=== PATIENT | female | born 1990 | race Caucasian/White ===

== ENCOUNTER 2017-10-24 00:15 | Emergency (ER) | payer MEDICAID ==
[~2017-10-24] VITALS: Ht 162.6 cm; Wt 73.0 kg
[2017-10-24 00:19] VITALS: BP 125/68
--- NOTE | 2017-10-24 00:40 | NUR ---
TO ER BED 4
--- NOTE | 2017-10-24 00:40 | NUR ---
27/F CAME IN W C/O 03/28 RLQ PAIN, CONSTANT, PROGRESSIVELY WORSENING X 2 DAYS. ABD SOFT, ROUND, +TENDERNESS TO RLQ. PT REPORTS N/VX 2 TODAY, REPORTS HEMATURIA/DYSURIA, PAINFUL INTERCOURSE, DENIES FEVER/CHILLS, DENIES SOB/CP/COUGH. PMH: PID 2017, VERTIGO, DENIES RX, TOOK TYLENOL AT 1300 YESTERDAY WITHOUT RELIEF OF SX
[2017-10-24] MEDS ORDERED: KETOROLAC 60 MG/2 ML VIAL IM ONE (01:00)
[2017-10-24 01:03] LABS: APPEARANCE,URINE CLEAR (CLEAR); BILIRUBIN,URINE NEGATIVE (NEGATIVE); BLOOD, URINE NEGATIVE (NEGATIVE); COLOR,URINE YELLOW (YELLOW); LEUKOCYTE ESTERASE ,URINE NEGATIVE (NEGATIVE); NITRITE, URINE NEGATIVE (NEGATIVE); UGLUCOSE NEGATIVE (NEGATIVE)
[2017-10-24] MEDS ORDERED: AZITHROMYCIN 250 MG TAB PO ONE (02:15)
[2017-10-24] MEDS ORDERED: cefTRIAXone 250 MG in LIDOCAINE MPF 1% - **ER/OR** 0.9 ML IM ONE (02:15)
[2017-10-24] MEDS ORDERED: MORPHINE SULFATE 2 MG/ML SYR IM ONE (02:35)
--- NOTE | 2017-10-24 03:55 | NUR ---
Patient discharged with v/s stable. Written and verbal after care instructions given and explained. Patient alert, oriented and verbalized understanding of instructions. Ambulatory with steady gait. All questions addressed prior to discharge. ID band removed. Patient advised to follow up with PMD. Rx of TRAMADOL AND MOTRIN given. Patient educated on indication of medication including possible reaction and side effects. Opportunity to ask questions provided and answered.
[2017-10-24 04:06] VITALS: BP 125/74
[2017-10-26 06:24] LABS: CHLAMYDIA TRACHOMATIS AMP DNA Negative (Negative)
== END 2017-10-24 03:55 | disposition home or self-care (01) ==
LOC: MED 00:15
DX: R10.2 Pelvic and perineal pain (principal); I10 Essential (primary) hypertension
CPT/HCPCS: 36415; 74176; 76856; 81003; 81025; 87491; 96372; 99285; J0696; J1885; J2001; J2270; Q0092

== ENCOUNTER 2018-07-30 18:18 | Emergency (ER) | payer MEDICAID ==
[~2018-07-30] VITALS: Ht 162.6 cm; Wt 65.8 kg
[2018-07-30 18:30] VITALS: BP 137/87
--- NOTE | 2018-07-30 18:31 | NUR ---
PT TRIAGED AND SENT TO ER LOBBY
--- NOTE | 2018-07-30 18:53 | NUR ---
PT AMBULATES TO BED 7
--- NOTE | 2018-07-30 19:00 | NUR ---
PATIENT IS A 28 Y/O FEMALE WHO PRESENTS TO THE ED C/O HEADACHE. PT STATES THAT IT STARTED X3 DAYS AGO. PT REPORTS 9/10 L SIDED HEADACHE AND EAR PAIN, REPORTS GREEN DISCHARGE FROM NOSE. TOOK SUMATRIPTAN AND TYLENOL WITH NO RELIEF. PT DENIES CP, SOB, REPORTS N/V/D. PT AWAKE AND ALERT, RR EVEN/UNLABORED. PT REPOSITIONED FOR COMFORT, BED IN LOWEST POSITION. ER MD NOTIFIED. WILL CONTINUE TO MONITOR. PMH---VERTIGO ALLERGIES---CODEINE
--- NOTE | 2018-07-30 19:05 | NUR ---
REPORT GIVEN TO RUSH MERCADO. TRANSFER OF CARE AT THIS TIME.
--- NOTE | 2018-07-30 21:23 | NUR ---
DR. MINOR EVALUATING PATIENT.
[2018-07-30] MEDS ORDERED: KETOROLAC 60 MG/2 ML VIAL IM ONE (21:35)
[2018-07-30] MEDS ORDERED: ACETAMINOPHEN 325 MG TAB PO ONE (21:35)
[2018-07-30] MEDS ORDERED: ONDANSETRON 4 MG ODT PO ONE (21:35)
--- NOTE | 2018-07-30 22:00 | NUR ---
Patient discharged with v/s stable. Written and verbal after care instructions given and explained. Patient alert, oriented and verbalized understanding of instructions. Ambulatory with steady gait. All questions addressed prior to discharge. ID band removed. Patient advised to follow up with PMD. Rx of TRAMADOL, ZOFRAN, KEFLEX given. Patient educated on indication of medication including possible reaction and side effects. Opportunity to ask questions provided and answered.
[2018-07-30 22:04] VITALS: BP 128/72
== END 2018-07-30 22:00 | disposition home or self-care (01) ==
LOC: MED 18:18
DX: J32.9 Chronic sinusitis, unspecified (principal); Z88.5 Allergy status to narcotic agent
CPT/HCPCS: 81002; 81025; 96372; 99283; J1885; Q0162

== ENCOUNTER 2018-08-15 16:13 | Emergency (ER) | payer MEDICAID ==
[~2018-08-15] VITALS: Ht 162.6 cm; Wt 70.3 kg
[2018-08-15 16:42] VITALS: BP 124/92
[2018-08-15 19:01] LABS: BASOPHILS % (AUTO) 0.6 % (0.0-2.0); EOSINOPHILS # (AUTO) 0.1 K/uL (0-0.4); HEMATOCRIT 43.9 % (36-48); HEMOGLOBIN 14.5 g/dL (12.0-16.0); LYMPHOCYTES % (AUTO) 18.4 % (20.5-51.1); MEAN CORPUSCULAR HEMOGLOBIN 30 pg (27-31); MEAN CORPUSCULAR HGB CONC 33 g/dL (33-37); MEAN CORPUSCULAR VOLUME 89.1 fL (80-94); MONOCYTES # (AUTO) 0.4 K/uL (0.8-1.0); MONOCYTES % (AUTO) 7.4 % (1.7-9.3); NEUTROPHILS # (AUTO) 3.9 K/uL (1.8-7.7); NEUTROPHILS % (AUTO) 71.6 % (42.2-75.2); PLATELET COUNT (AUTO) 214 K/uL (140-450); RED BLOOD CELL COUNT(AUTO) 4.92 MIL/uL (4.20-5.40); RED CELL DISTRIBUTION WIDTH 13.1 % (11.6-13.7); WHITE BLOOD COUNT (AUTO) 5.5 K/uL (4.8-10.8)
[2018-08-15 19:17] LABS: ANION GAP 13.8 (8-16); CARBON DIOXIDE 26.7 mmol/L (21-32); CREATININE 0.8 mg/dL (0.6-1.3); POTASSIUM 3.5 mmol/L (3.5-5.1)
[2018-08-15 19:28] LABS: APPEARANCE,URINE CLEAR (CLEAR); BILIRUBIN,URINE NEGATIVE (NEGATIVE); BLOOD, URINE NEGATIVE (NEGATIVE); COLOR,URINE YELLOW (YELLOW); LEUKOCYTE ESTERASE ,URINE NEGATIVE (NEGATIVE); NITRITE, URINE NEGATIVE (NEGATIVE); UGLUCOSE NEGATIVE (NEGATIVE)
[2018-08-15 19:31] LABS: ALBUMIN 3.8 g/dL (3.4-5.0); THYROID STIMULATING HORMONE 1.97 uIU/mL (0.34-3.74); TOTAL BILIRUBIN 0.2 mg/dL (0.0-1.0)
[2018-08-15] MEDS: IBUPROFEN 400 MG TAB PO ONE (19:41)
[2018-08-15 20:30] VITALS: BP 120/77
== END 2018-08-15 20:30 | disposition home or self-care (01) ==
LOC: MED 16:13
DX: R53.83 Other fatigue (principal); M25.50 Pain in unspecified joint; M79.10 Myalgia, unspecified site; R03.0 Elevated blood-pressure reading, without diagnosis of hypertension; Z88.5 Allergy status to narcotic agent
CPT/HCPCS: 36415; 80053; 81003; 81025; 84443; 85025; 85651; 93005; 99284

== ENCOUNTER 2018-11-08 16:26 | Emergency (ER) | payer MEDICAID ==
[~2018-11-08] VITALS: Ht 134.6 cm; Wt 70.3 kg
[2018-11-08 16:29] VITALS: BP 133/102
--- NOTE | 2018-11-08 17:00 | NUR ---
PT. BIB SELF C/O OF BODY ACHES, JOINT PAINS, MUSCLE ACHES X EARLIER THIS MORNING. 4/10 CONSTANT ACHING PAIN ALL OVER JOINTS AND BODY. PT. STATES " I ALSO HAVE LIKE MUSCLE SPASMS ALL OVER AND IF I DONT KEEP MOVING THEY GET WORSE". RR EVEN AND UNLABORED. DENIES ANY SOB, DENIES ANY CHEST PAIN AT THIS TIME.DENIES ANY FALL OR INJURY. ER MD MADE AWARE OF PATIENT STATUS. WILL CONTINUE TO MONITOR. SAFETY PRECAUTIONS IMPLEMENTED.
[2018-11-08] MEDS ORDERED: predniSONE 20 MG TAB PO ONE (17:45)
[2018-11-08] MEDS ORDERED: ONDANSETRON 4 MG ODT PO ONE (17:45)
[2018-11-08] MEDS ORDERED: HYDROcodone/APAP 5/325 MG 1 TAB TAB PO ONE (17:45)
--- NOTE | 2018-11-08 18:20 | NUR ---
PT. RESTING COMFORTABLY IN BED, RR EVEN AND UNLABORED. VSS. HOB ELEVATED. SAFETY PRECAUTIONS IN PLACE. WILL CONTINUE TO MONITOR.
[2018-11-08 18:43] VITALS: BP 121/83
--- NOTE | 2018-11-08 18:43 | NUR ---
Patient discharged with v/s stable. Written and verbal after care instructions given and explained. Patient alert, oriented and verbalized understanding of instructions. Ambulatory with steady gait. All questions addressed prior to discharge. ID band removed. Patient advised to follow up with PMD. Rx of NORCO & IBUPROFEN given. Patient educated on indication of medication including possible reaction and side effects. Opportunity to ask questions provided and answered.
== END 2018-11-08 16:40 | disposition home or self-care (01) ==
LOC: MED 16:26
DX: M25.551 Pain in right hip (principal); M25.511 Pain in right shoulder; M25.512 Pain in left shoulder; M25.552 Pain in left hip; M79.10 Myalgia, unspecified site; M25.50 Pain in unspecified joint
CPT/HCPCS: 81025; 99284; J7512; Q0162

== ENCOUNTER 2018-12-29 17:27 | Emergency (ER) | payer MEDICAID ==
[~2018-12-29] VITALS: Ht 160 cm; Wt 72.6 kg
[2018-12-29 17:29] VITALS: BP 114/75
[2018-12-29 18:27] LABS: BASOPHILS # (AUTO) 0.1 K/uL (0.00-0.22); EOSINOPHILS % (AUTO) 0.6 % (0.0-4.0); HEMATOCRIT 41.3 % (36-48); HEMOGLOBIN 13.9 g/dL (12.0-16.0); LYMPHOCYTES # (AUTO) 2.4 K/uL (2.5-16.5); LYMPHOCYTES % (AUTO) 37.3 % (20.5-51.1); MEAN CORPUSCULAR HEMOGLOBIN 30 pg (27-31); MEAN CORPUSCULAR HGB CONC 34 g/dL (33-37); MEAN CORPUSCULAR VOLUME 89.3 fL (80-94); MONOCYTES # (AUTO) 0.3 K/uL (0.8-1.0); MONOCYTES % (AUTO) 5.1 % (1.7-9.3); NEUTROPHILS # (AUTO) 3.6 K/uL (1.8-7.7); PLATELET COUNT (AUTO) 253 K/uL (140-450); RED BLOOD CELL COUNT(AUTO) 4.63 MIL/uL (4.20-5.40); RED CELL DISTRIBUTION WIDTH 13.3 % (11.6-13.7); WHITE BLOOD COUNT (AUTO) 6.4 K/uL (4.8-10.8)
[2018-12-29 18:38] LABS: APPEARANCE,URINE CLEAR (CLEAR); BILIRUBIN,URINE NEGATIVE (NEGATIVE); COLOR,URINE YELLOW (YELLOW); LEUKOCYTE ESTERASE ,URINE NEGATIVE (NEGATIVE); NITRITE, URINE NEGATIVE (NEGATIVE); UGLUCOSE NEGATIVE (NEGATIVE)
[2018-12-29 18:46] LABS: WBC,URINE 0-5 /HPF (0-5)
[2018-12-29 18:48] LABS: BLOOD, URINE 3+ (NEGATIVE); RBC,URINE 0-5 /HPF (0-5)
[2018-12-29 19:00] LABS: PROTHROMBIN TIME 9.9 secs (10.8-13.4)
--- NOTE | 2018-12-29 20:28 | NUR ---
PT BIB SELF C/O LLQ ABD PAIN. PT STATES SHE IS HAVING ABNORMAL VAGINAL BLEEDING STARTED THIS MORNING; LMP: 12/14/18, PREG DIP NEG. PT STATES 8/10 STABBING PAIN, + TENDERNESS. PT STATES SATURATION OF 1 PAD Q2-3 HRS, -CLOTS. STATES TOOK NAPROXEN 500MG AND IBUPROFEN 500 MG AT HOME W/O RELIEF. --BOWEL SOUNDS ACTIVE X4 QUAD; ABD FLAT AND SLIGHTLY FIRM, LBM TODAY AT 0800, PT STATES NORMAL. SKIN WARM, DRY AND INTACT. PT ACTING APPROPRIATLY. PMH: VERTIGO RX: MECLIZINE
--- NOTE | 2018-12-29 21:59 | NUR ---
DR. MEDEL AT BEDSIDE FOR EVALUATION.
--- NOTE | 2018-12-29 22:25 | NUR ---
Patient discharged with v/s stable. Patient acting appropriatly, patient states 3/10 pain at this time, patient states she is ready to go home. Written and verbal after care instructions given and explained. Patient alert, oriented and verbalized understanding of instructions. Ambulatory with steady gait. All questions addressed prior to discharge. ID band removed. Patient advised to follow up with PMD. Rx of Nitrofurantoin given. Patient educated on indication of medication including possible reaction and side effects. Opportunity to ask questions provided and answered.
[2018-12-29 22:30] VITALS: BP 121/89
== END 2018-12-29 22:25 | disposition home or self-care (01) ==
LOC: MED 17:27
DX: N39.0 Urinary tract infection, site not specified (principal); N93.8 Other specified abnormal uterine and vaginal bleeding
CPT/HCPCS: 36415; 76830; 81001; 81025; 85025; 85610; 85730; 99284; Q0092

== ENCOUNTER 2019-08-08 13:32 | Emergency (ER) | payer MEDICAID ==
[~2019-08-08] VITALS: Ht 160 cm; Wt 69.4 kg
[2019-08-08 13:59] VITALS: BP 129/74
[2019-08-08] MEDS: KETOROLAC 30 MG/ML VIAL IM ONE (15:31)
[2019-08-08 15:37] VITALS: BP 127/73
== END 2019-08-08 15:37 | disposition home or self-care (01) ==
LOC: MED 13:32
DX: S63.501A Unspecified sprain of right wrist, initial encounter (principal); W01.0XXA Fall on same level from slipping, tripping and stumbling without subsequent striking against object, initial encounter; Y93.01 Activity, walking, marching and hiking; Y92.009 Unspecified place in unspecified non-institutional (private) residence as the place of occurrence of the external cause; Y99.8 Other external cause status
CPT/HCPCS: 73110; 96372; 99283; J1885

== ENCOUNTER 2019-09-16 10:02 | Emergency (ER) | payer MEDICAID ==
[~2019-09-16] VITALS: Ht 160 cm; Wt 72.6 kg
[2019-09-16 10:07] VITALS: BP 124/95
--- NOTE | 2019-09-16 10:09 | NUR ---
TRIAGE COMPLETE. VSS, TO LOBBY AWAITING BED IN ED.
[2019-09-16] MEDS ORDERED: predniSONE 20 MG TAB PO ONE (12:05)
[2019-09-16] MEDS ORDERED: KETOROLAC 60 MG/2 ML VIAL IM ONE (12:05)
[2019-09-16] MEDS ORDERED: ALBUTEROL SULFATE/IPRATROPIU 3 ML SOL IH ONE (12:05)
[2019-09-16] MEDS ORDERED: PROMETHAZINE 25 MG/ML VIAL IM ONE (12:05)
--- NOTE | 2019-09-16 12:24 | NUR ---
BREATHING TX DONE BEDSIDE. FLU SWAP DONE AND PICKEDUP BY LAB.
--- NOTE | 2019-09-16 12:35 | NUR ---
PT WAS MEDICATED WITH TORADOL AND PHENERGAN.
--- NOTE | 2019-09-16 14:37 | NUR ---
Patient discharged with v/s stable. Written and verbal after care instructions given and explained. Patient alert, oriented and verbalized understanding of instructions. Ambulatory with steady gait. All questions addressed prior to discharge. ID band removed. Patient advised to follow up with PMD. Rx of MOTRIN, TAMIFLU AND PROMETHAZONE DM given. Patient educated on indication of medication including possible reaction and side effects. Opportunity to ask questions provided and answered.
[2019-09-16 14:38] VITALS: BP 124/75
== END 2019-09-16 14:37 | disposition home or self-care (01) ==
LOC: MED 10:02
DX: J10.1 Influenza due to other identified influenza virus with other respiratory manifestations (principal); J06.9 Acute upper respiratory infection, unspecified
CPT/HCPCS: 87804; 94640; 96372; 99283; J1885; J2550; J7512; J7620